=== PATIENT | female | born 1990 | race Caucasian/White ===

== ENCOUNTER 2019-01-21 20:25 | Emergency (ER) | payer OTHER, SELFPAY ==
[2019-01-21 20:35] VITALS: BP 111/72; PULSE 97; RESP 14; TEMP 37.8; O2SAT 96
--- NOTE | 2019-01-21 20:41 | DI.RAD.S_ITS ---
PROCEDURE: XR CHEST 2V INDICATIONS: chest burning and tightness. TECHNIQUE: 2 views of the chest were acquired. COMPARISON: None. FINDINGS: Surgical changes and devices: None. Lungs and pleura: Lungs are clear. No pleural effusions or pneumothorax. Mediastinum: Mediastinal contours are normal. Heart size is normal. Bones and chest wall: No suspicious bony abnormalities. Soft tissues appear unremarkable. IMPRESSION: Normal chest. Dictated by: Ching Sauceda M.D. on 01/21/2019 at 21:00 Approved by: Ching Sauceda M.D. on 01/21/2019 at 21:00
[2019-01-21 21:05] LABS: Influenza A and B by PCR Rapid Negative (Negative)
--- NOTE | 2019-01-21 22:18 | ED.URI ---
HPI - URI/Sore Throat General Chief Complaint: Upper Respiratory Symptoms Stated Complaint: TIGHTNESS OF CHEST BURING SENSATION SORE THROAT Time Seen by Provider: 01/21/19 22:17 Source: patient Mode of arrival: ambulatory Limitations: no limitations History of Present Illness HPI Narrative: Patient is a 28-year-old female sent over from the walk-in clinic for evaluation after she went to the walk-in clinic for evaluation of a couple days of chest congestion and coughing and chest pain and shortness of breath. Related Data Home Medications Medication Instructions Recorded Confirmed bupropion HCl SR 150 mg tablet,12 150 mg PO BID 01/21/19 01/21/19 hr sustained-release diphenhydramine 25 mg capsule 25 mg PO BEDTIME PRN 01/21/19 01/21/19 melatonin 3 mg tablet 3 mg PO BEDTIME PRN 01/21/19 01/21/19 Allergies Allergy/AdvReac Type Severity Reaction Status Date / Time aspirin Allergy Verified 01/21/19 19:41 Review of Systems Constitutional Denies fever(s) Cardiovascular Reports chest pain, Denies rapid heart rate, Denies palpitations and Reports dyspnea Respiratory Reports pain on inspiration and Reports dyspnea Gastrointestinal Gastrointestinal: Denies change in stool character, Denies nausea and Denies vomiting Musculoskeletal Denies myalgias Integumentary/Breasts Denies rash Endocrine Denies palpitations Hematologic/Lymphatic Denies easy bleeding and Denies easy bruising PFSH Medical History Healthy adult (Acute) Social History Smoking Status: Never smoker Social History Smoking Status: Never smoker Exam Initial Vital Signs Initial Vital Signs: Vital Signs Temperature 100.1 F H 01/21/19 20:35 Pulse Rate 97 H 01/21/19 20:35 Respiratory Rate 14 01/21/19 20:35 Blood Pressure 111/72 01/21/19 20:35 Pulse Oximetry 96 01/21/19 20:35 Const General: cooperative, healthy appearing, comfortable, well developed, well groomed and No acute distress Orientation: alert and awake Resp Effort & Inspection: normal respiratory effort Auscultation: clear to auscultation bilaterally Cardio Rate: regular rate Rhythm: regular rhythm GI Inspection: non-distended Palpation: soft Skin Lesions: no lesions Rashes: no rashes Neuro General: alert, awake and oriented x3 Extrem General: normal to inspection and capillary refill normal Course Orders Ordered: ED Orders 01/21/19 20:41 XR chest 2V Stat EKG-12 Lead Stat 01/21/19 20:42 Influenza A and B by PCR Rapid Stat Vital Signs - 8 hr 01/21/19 20:35 01/21/19 22:54 Temperature 100.1 F H Pulse Rate 97 H 89 Respiratory Rate 14 20 Blood Pressure 111/72 106/74 Pulse Oximetry 96 100 MDM - URI/Sore Throat Lab Data Attestation: I reviewed the patient's lab results. Lab Results 01/21/19 Range/Units 20:42 Influenza A & B (PCR) Negative (Negative) Imaging Data Chest x-ray: Radiologist's impression: [address] [address] XRay Report Signed Patient: Massiel La MMR#: [id number] : 1990Acct:[id number] Age/Sex: 28 / FDate of Service: 01/21/19 Loc: ED Accession Number: [id number] Procedure: XR chest 2V Ordering Provider: Juan M Fernandez D.O. PROCEDURE: XR CHEST 2V INDICATIONS: chest burning and tightness. TECHNIQUE: 2 views of the chest were acquired. COMPARISON: None. FINDINGS: Surgical changes and devices: None. Lungs and pleura: Lungs are clear. No pleural effusions or pneumothorax. Mediastinum: Mediastinal contours are normal. Heart size is normal. Bones and chest wall: No suspicious bony abnormalities. Soft tissues appear unremarkable. IMPRESSION: Normal chest. Dictated by: Ching Sauceda M.D. on 01/21/2019 at 21:00 Approved by: Ching Sauceda M.D. on 01/21/2019 at 21:00 ECG Data Attestation: I personally reviewed and interpreted this ECG as follows: Prior ECG tracings: not available for review Interpretation: Sinus rhythm Ventricular rate 87 Normal axis Normal intervals Normal QRS Normal QTC No ST T wave changes MDM Narrative Medical decision making narrative: Low suspicion for ACS, flu was negative. Chest x-ray is unremarkable. No suspicion for PE. Suspect viral URI. Discussed all this with the patient. We discussed return precautions. She expressed understanding and agreement with plan. Discharge Plan Departure Patient Disposition: Home Clinical Impression: Upper respiratory infection Qualifiers: URI type: unspecified URI Qualified Code(s): J06.9 - Acute upper respiratory infection, unspecified Discharge Date/Time: 01/21/19 22:55 Interventions: ED Discharge Assessment Last Done: 01/21/19 22:54 Instructions: DI for Viral Upper Respiratory Infection -- Adult Activity Restrictions/Additional Instructions: Contact your primary care doctor for a follow-up. Continue with the decongestants like we discussed. Return to the emergency department for any new or worsening symptoms Prescriptions: No Action bupropion HCl [Wellbutrin SR] 150 mg tablet sustained-release 12 hr 150 mg PO BID RF: 0 melatonin 3 mg tablet 3 mg PO BEDTIME PRNRF: 0 diphenhydramine HCl [ZzzQuil] 25 mg capsule 25 mg PO BEDTIME PRNRF: 0
[2019-01-21 22:54] VITALS: BP 106/74; PULSE 89; RESP 20; O2SAT 100
== END 2019-01-21 22:55 | disposition home or self-care (01) ==
PROVIDERS: Emergency Provider Emergency Medicine
DX: J06.9 Acute upper respiratory infection, unspecified (principal)
CPT/HCPCS: 71046; 87400; 93005; 99282; 99284

== ENCOUNTER → 2021-08-12 10:12 | Outpatient (CLI) | payer OTHER, SELFPAY | PROVIDERS: Referring Provider Internal Medicine; Visit Provider Internal Medicine | DX: Z23 Encounter for immunization (principal) | CPT/HCPCS: 90471; 90686 ==

== ENCOUNTER → 2021-09-10 15:36 | Outpatient (CLI) | payer OTHER, SELFPAY ==
[2021-09-10] MEDS: COVID-19 VACC #3, MRNA(MOD) 50 MCG/0.25 ML VIAL IM (15:44)
== END ==
PROVIDERS: Visit Provider Internal Medicine
DX: Z23 Encounter for immunization (principal)
CPT/HCPCS: 0013A; 91301

== ENCOUNTER → 2021-11-10 11:14 | Outpatient (CLI) | payer OTHER, SELFPAY ==
[2021-11-10 14:26] LABS: COVID19 -Nasal RAPID Negative (Negative)
== END ==
PROVIDERS: Referring Provider Nurse Practitioner Family; Visit Provider Nurse Practitioner Family
DX: Z20.822 Contact with and (suspected) exposure to COVID-19 (principal); R05.9 Cough, unspecified
CPT/HCPCS: 87635

== ENCOUNTER → 2022-03-10 07:26 | Outpatient (CLI) | payer OTHER, SELFPAY ==
[2022-03-10 08:46] LABS: Add Manual Diff / Slide Review NO; Basophils Absolute Auto 0 /uL (0-100); Basophils Percent Auto 0.9 % (0-2); Eosinophils Absolute Auto 100 /uL (0-450); Eosinophils Percent Auto 1.5 % (2-4); Hematocrit 38.1 % (36-46); Hemoglobin 13.1 g/dL (12.0-16.0); Lymphocytes Absolute Auto 1700 /uL (1100-4500); Mean Corpuscular HGB Conc 34.4 % (30-36); Mean Corpuscular Hemoglobin 31.8 PG (26-34); Mean Corpuscular Volume 92.3 fL (80-100); Monocytes Absolute Auto 500 /uL (0-900); Monocytes Percent Auto 12.8 % (3-14); Neutrophils Absolute Auto 1800 /uL (1500-7000); Neutrophils Percent Auto 43.8 % (50-75); Platelet Count 163 X10^3/uL (150-400); Red Blood Cell Count 4.13 X10^6/uL (4.0-5.2); Red Cell Distribution Width 12.9 % (11.6-14.8); White Blood Cell Count 4.1 X10^3/uL (4.5-11.0)
[2022-03-10 09:03] LABS: Alanine Aminotransferase 10 IU/L (<35); Albumin 4.3 g/dL (3.5-5.0); Albumin Globulin Ratio 1.7 (1.0-2.8); Alkaline Phosphatase 108 U/L (38-126); Aspartate Aminotransferase 19 IU/L (14-36); BUN Creatinine Ratio 10.1 (6-22); Bilirubin Total 0.9 mg/dL (0.2-1.3); Blood Urea Nitrogen 8 mg/dL (7-17); Calcium 8.7 mg/dL (8.4-10.2); Carbon Dioxide 25 mmol/L (22-32); Chloride 106 mmol/L (98-107); Cholesterol 179 mg/dL (140-199); Estimated Glomerular Filt Rate > 60 mL/min (>60); Globulin 2.6 g/dL (1.7-4.1); Glucose 84 mg/dL (70-100); HDL Cholesterol 77 mg/dL (40-60); HEMOLYSIS < 15 (0-50); LDL Cholesterol Calculated 88 mg/dL (<100); Sodium 139 mmol/L (137-145); Total Protein 6.9 g/dL (6.3-8.2); Triglycerides 70 mg/dL (35-150)
[2022-03-10 09:05] LABS: Hemoglobin A1C% w Est Avg Glu 4.6 % (4.0-6.0)
[2022-03-10 09:32] LABS: TSH w/ Reflex to FT4 5.05 uIU/mL (0.47-4.68)
[2022-03-10 09:57] LABS: Free T4, Direct Thyroxine 1.02 ng/dL (0.78-2.19)
== END ==
PROVIDERS: PCP Nurse Practitioner; Referring Provider Internal Medicine Cardiovascular Disease; Visit Provider Internal Medicine Cardiovascular Disease
DX: R00.2 Palpitations (principal); Z13.220 Encounter for screening for lipoid disorders; Z13.1 Encounter for screening for diabetes mellitus
CPT/HCPCS: 36415; 80053; 80061; 83036; 84439; 84443; 85025

== ENCOUNTER → 2022-05-17 16:15 | Outpatient (CLI) | payer OTHER, SELFPAY ==
--- NOTE | 2022-05-17 16:17 | DI.MRI.S_ITS ---
PROCEDURE: MR CERVICAL SPINE WO CON INDICATIONS: RADICULOPATHY CERVICAL REGION TECHNIQUE: Noncontrast sagittal T1 spin echo and T2 fast spin echo, sagittal STIR, foraminal oblique sagittal T2 fast spin echo, and axial gradient echo or T2 fast spin echo through the cervical spine. COMPARISON: None. FINDINGS: Image quality: Excellent. Alignment and Curvature: There is normal bony alignment. Bone Marrow: Marrow demonstrates normal overall signal. Spinal Cord: Visualized spinal cord has normal size and signal. No cerebellar tonsillar herniation. Paraspinous Soft Tissues: No paravertebral masses. Prevertebral soft tissues are normal in thickness. Mucosal thickening noted in the visualized maxillary sinuses bilaterally, right greater than left. C2-C3: Normal appearance. C3-C4: Normal appearance. C4-C5: Normal appearance. C5-C6: Normal appearance. C6-C7: Normal appearance. C7-T1: Normal appearance. IMPRESSION: 1. Normal examination. 2. No central stenosis. 3. No neural foraminal narrowing. 4. No neural compression. Dictated by: Alka Torres MD, PhD on 05/18/2022 at 10:17 Approved by: Alka Torres MD, PhD on 05/18/2022 at 10:19
== END ==
PROVIDERS: PCP Nurse Practitioner; Referring Provider Physical Medicine & Rehabilitation Pain Medicine; Visit Provider Physical Medicine & Rehabilitation Pain Medicine
DX: M54.12 Radiculopathy, cervical region (principal)
CPT/HCPCS: 72141

== ENCOUNTER → 2022-06-14 12:47 | Outpatient (CLI) | payer OTHER, SELFPAY ==
--- NOTE | 2022-06-14 14:08 | DI.ECHO.S_ITS ---
+ + Interpretation Summary The ejection fraction is estimated to be 55-60%. Diastolic parameters suggest probable normal left ventricular diastolic function and normal filling pressures. The right ventricle is normal in size and function. No significant valvular abnormalities. Unable to estimate PASP. Procedure: A two-dimensional transthoracic echocardiogram with color flow and Doppler was performed. The study quality was technically difficult. There is no prior echocardiogram noted for this patient. The patient was in normal sinus rhythm during the exam. Left Ventricle: The left ventricle is normal in size and wall thickness. Left ventricular systolic function is normal. The ejection fraction is estimated to be 55-60%. There are no focal wall motion abnormalities. Diastolic parameters suggest probable normal left ventricular diastolic function and normal filling pressures. Right Ventricle: The right ventricle is normal in size and function. Atria: Both atria are normal in size. The interatrial septum grossly appears intact with no obvious evidence for an atrial septal defect. Mitral Valve: The mitral valve is normal in structure and function. There is no mitral regurgitation noted. Aortic Valve: The aortic valve opens well. There is no aortic valve stenosis. No aortic regurgitation is present. Tricuspid Valve: The tricuspid valve is normal in structure and function. No tricuspid regurgitation. Pulmonary artery pressures cannot be estimated because of the lack of a measurable TR jet velocity. Pulmonic Valve: The pulmonic valve is not well visualized. Great Vessels: The aortic root is not well visualized. The ascending aorta could not be visualized. The IVC is of normal diameter and collapses greater than 50% with a sniff. This suggests a low right atrial pressure of 3 mm Hg. Pericardium/ Pleura There is no pericardial effusion. There is no pleural effusion. MMode/2D Measurements & Calculations LVIDd: 4.0 cm LA dimension: 2.9 cm LVIDs: 2.6 cm LA A4 area: 7.1 cm2 FS: 33.4 % LA length (vol): 3.4 cm IVSd: 0.68 cm LVPWd: 0.72 cm LV goodman. diameter/BSA (cm/m^2): 2.4 LV sys. diameter/BSA (cm/m^2): 1.6 RA long axis: 3.3 cm TAPSE: 1.9 cm RA area: 7.2 cm2 RA vol: 13.2 ml RA : 8.1 ml/m2 Doppler Measurements & Calculations Ao V2 max: 110.7 cm/sec LVOT Max Jack: 83.9 cm/sec Ao V2 mean: 76.0 cm/sec LV V1 max P.8 mmHg Ao max P.9 mmHg LV V1 VTI: 16.1 cm Ao mean P.6 mmHg sev ratio: 0.78 Ao V2 VTI: 20.7 cm MV E max jack: 79.9 cm/sec MV A max jack: 48.9 cm/sec MV E/A: 1.6 Med Peak E' Jack: 12.0 cm/sec E/E' med: 6.6 Lat Peak E' Jack: 15.8 cm/sec E/E' lat: 5.0 E/e' average: 5.8 MV dec time: 0.16 sec Reading Physician:04:[id number] PM
[2022-06-14 15:30] LABS: COVID19 -Nasal RAPID Negative (Negative)
--- NOTE | 2022-06-15 18:52 | DI.NM.S_ITS ---
DATE OF SERVICE: 06/14/2022 PROCEDURE: Exercise stress test. INDICATION: Dizziness, presyncope, palpitation. CARDIAC STRESS: Patient underwent exercise stress test under the supervision of an attending staff. She walked on Evan protocol for 6 minutes and achieved maximum heart rate of 169 beats per minute. It was 90 percent of target heart rate. Baseline blood pressure 102/80 mmHg. Peak blood pressure 133/90 mmHg. The patient achieved 7 METs of workload. Functional aerobic impairment positive 36 percent. Baseline rhythm was sinus. During stress, no convincing ischemic changes seen. No significant arrhythmias seen. No chest pain. The patient had lightheadedness and moderate shortness of breath. The patient achieved a heart rate of 150 within 2 minutes and 50 minutes into the exercise, suggestive of enhanced chronotropic response. At 5 minutes into the recovery, her heart rate was 109, suggestive of late recovery. CONCLUSION: Exercise stress test is negative for inducible ischemia. However, there is enhanced chronotropic response. Within 2 minutes and 50 minutes into the exercise, patient's heart rate was about 150 beats per minute. After 5 minutes in recovery. Heart rate was 109 beats per minute, suggestive of late recovery response. There is a normal blood pressure response. No chest pain however had moderate shortness of breath and lightheadedness. Diminished exercise tolerance. Correlate clinically. Massiel La - Lita doc#: [id number]/job#: [id number] dd: 06/15/2022 17:14:00 dt: 06/15/2022 18:12:00 DICTATING MD/COPIES TO: Elidia Sorto MD COPIES MNE: JORGE;
== END ==
PROVIDERS: PCP Nurse Practitioner; Referring Provider Internal Medicine Cardiovascular Disease; Visit Provider Internal Medicine Cardiovascular Disease
DX: R00.2 Palpitations (principal); R42 Dizziness and giddiness; R55 Syncope and collapse; Z20.822 Contact with and (suspected) exposure to COVID-19
CPT/HCPCS: 87635; 93017; 93306

== ENCOUNTER → 2022-08-23 15:52 | Outpatient (CLI) | payer OTHER, SELFPAY | PROVIDERS: PCP Nurse Practitioner; Referring Provider Internal Medicine; Visit Provider Internal Medicine | DX: Z23 Encounter for immunization (principal) | CPT/HCPCS: 90471; 90686 ==

== ENCOUNTER → 2022-10-11 13:24 | Outpatient (CLI) | payer OTHER, SELFPAY | PROVIDERS: PCP Nurse Practitioner; Visit Provider Physician Assistant Medical | DX: R30.0 Dysuria (principal) | CPT/HCPCS: 87086 ==

== ENCOUNTER → 2023-04-12 07:43 | Outpatient (CLI) | payer OTHER, SELFPAY ==
[2023-04-12 08:37] LABS: Add Manual Diff / Slide Review NO; Basophils Absolute Auto 0 /uL (0-100); Basophils Percent Auto 0.8 % (0-2); Eosinophils Absolute Auto 100 /uL (0-450); Eosinophils Percent Auto 3.2 % (2-4); Hematocrit 36.7 % (36-46); Hemoglobin 12.4 g/dL (12.0-16.0); Lymphocytes Absolute Auto 1400 /uL (1100-4500); Mean Corpuscular HGB Conc 33.8 % (30-36); Mean Corpuscular Hemoglobin 32.1 PG (26-34); Mean Corpuscular Volume 95.2 fL (80-100); Monocytes Absolute Auto 400 /uL (0-900); Monocytes Percent Auto 10.7 % (3-14); Neutrophils Absolute Auto 1900 /uL (1500-7000); Neutrophils Percent Auto 49.3 % (50-75); Platelet Count 170 X10^3/uL (150-400); Red Blood Cell Count 3.86 X10^6/uL (4.0-5.2); Red Cell Distribution Width 12.3 % (11.6-14.8); White Blood Cell Count 3.9 X10^3/uL (4.5-11.0)
[2023-04-12 08:42] LABS: HEMOLYSIS < 15 (0-50)
[2023-04-12 08:51] LABS: Alanine Aminotransferase 14 IU/L (<35); Albumin Globulin Ratio 1.5 (1.0-2.8); Alkaline Phosphatase 91 U/L (38-126); Aspartate Aminotransferase 18 IU/L (14-36); BUN Creatinine Ratio 11.8 (6-22); Bilirubin Total 0.8 mg/dL (0.2-1.3); Blood Urea Nitrogen 9 mg/dL (7-17); Calcium 8.8 mg/dL (8.4-10.2); Carbon Dioxide 27 mmol/L (22-32); Chloride 105 mmol/L (98-107); Cholesterol 167 mg/dL (140-199); Estimated Glomerular Filt Rate > 60 mL/min (>60); Globulin 2.6 g/dL (1.7-4.1); Glucose 87 mg/dL (70-100); HDL Cholesterol 69 mg/dL (40-60); LDL Cholesterol Calculated 86 mg/dL (<100); Potassium 4.2 mmol/L (3.4-5.1); Sodium 137 mmol/L (137-145); Total Protein 6.6 g/dL (6.3-8.2); Triglycerides 59 mg/dL (35-150)
[2023-04-12 09:17] LABS: Thyroid Stimulating Hormone 2.26 uIU/mL (0.47-4.68)
[2023-04-17 15:00] LABS: Vitamin B12 348 pg/mL (239-931)
== END ==
PROVIDERS: PCP Nurse Practitioner; Referring Provider Nurse Practitioner; Visit Provider Nurse Practitioner
DX: R55 Syncope and collapse (principal); Z13.220 Encounter for screening for lipoid disorders; D64.9 Anemia, unspecified; F32.9 Major depressive disorder, single episode, unspecified; R94.6 Abnormal results of thyroid function studies
CPT/HCPCS: 36415; 80053; 80061; 82607; 84439; 84443; 85025

== ENCOUNTER → 2023-08-08 16:08 | Outpatient (CLI) | payer OTHER, SELFPAY | PROVIDERS: PCP Nurse Practitioner; Referring Provider Family Medicine; Visit Provider Family Medicine | DX: Z23 Encounter for immunization (principal) | CPT/HCPCS: 90471; 90686 ==

== ENCOUNTER → 2023-11-01 14:00 | Outpatient (CLI) | payer OTHER, SELFPAY | PROVIDERS: PCP Nurse Practitioner; Visit Provider Nurse Practitioner Family | DX: R30.0 Dysuria (principal) | CPT/HCPCS: 87077; 87086; 87186 ==

== ENCOUNTER → 2023-11-08 10:05 | Outpatient (CLI) | payer OTHER, SELFPAY ==
[2023-11-08 10:56] LABS: Add Manual Diff / Slide Review NO; Basophils Absolute Auto 0 /uL (0-100); Basophils Percent Auto 0.7 % (0-2); Eosinophils Absolute Auto 100 /uL (0-450); Eosinophils Percent Auto 1.5 % (2-4); Hematocrit 37.2 % (36-46); Hemoglobin 12.5 g/dL (12.0-16.0); Lymphocytes Absolute Auto 1000 /uL (1100-4500); Lymphocytes Percent Auto 26.2 % (25-40); Mean Corpuscular HGB Conc 33.5 % (30-36); Mean Corpuscular Hemoglobin 31.5 PG (26-34); Mean Corpuscular Volume 94.1 fL (80-100); Monocytes Absolute Auto 400 /uL (0-900); Monocytes Percent Auto 10.3 % (3-14); Neutrophils Absolute Auto 2300 /uL (1500-7000); Neutrophils Percent Auto 61.3 % (50-75); Platelet Count 168 X10^3/uL (150-400); Red Blood Cell Count 3.96 X10^6/uL (4.0-5.2); Red Cell Distribution Width 12.6 % (11.6-14.8); White Blood Cell Count 3.8 X10^3/uL (4.5-11.0)
[2023-11-08 11:25] LABS: Alanine Aminotransferase 11 IU/L (<35); Albumin Globulin Ratio 1.4 (1.0-2.8); Alkaline Phosphatase 123 U/L (38-126); Amylase 56 U/L (30-110); BUN Creatinine Ratio 15.6 (6-22); Bilirubin Total 0.9 mg/dL (0.2-1.3); Blood Urea Nitrogen 10 mg/dL (7-17); Calcium 8.7 mg/dL (8.4-10.2); Carbon Dioxide 23 mmol/L (22-32); Chloride 108 mmol/L (98-107); Estimated Glomerular Filt Rate > 60 mL/min (>60); Globulin 2.8 g/dL (1.7-4.1); Glucose 88 mg/dL (70-100); HEMOLYSIS < 15 (0-50); Lipase 31 U/L (23-300); Potassium 3.6 mmol/L (3.4-5.1); Sodium 137 mmol/L (137-145); Total Protein 6.8 g/dL (6.3-8.2)
[2023-11-10 15:51] LABS: Aspartate Aminotransferase 19 IU/L (14-36)
== END ==
PROVIDERS: PCP Nurse Practitioner; Referring Provider Nurse Practitioner; Visit Provider Nurse Practitioner
DX: R10.11 Right upper quadrant pain (principal)
CPT/HCPCS: 36415; 80053; 82150; 83690; 85025

== ENCOUNTER → 2025-07-31 08:12 | Outpatient (CLI) | payer OTHER, SELFPAY ==
[2025-07-31 08:51] LABS: Add Manual Diff / Slide Review NO; Hematocrit 38.0 % (36-46); Hemoglobin 13.0 g/dL (12.0-16.0); Lymphocytes Absolute Auto 1400 /uL (1100-4500); Mean Corpuscular HGB Conc 34.1 % (30-36); Mean Corpuscular Hemoglobin 32.2 PG (26-34); Mean Corpuscular Volume 94.4 fL (80-100); Platelet Count 176 X10^3/uL (150-400)
[2025-07-31 09:16] LABS: Alanine Aminotransferase 14 IU/L (<35); Albumin 4.4 g/dL (3.5-5.0); Albumin Globulin Ratio 1.7 (1.0-2.8); Alkaline Phosphatase 130 U/L (38-126); Blood Urea Nitrogen 6 mg/dL (7-17); Calcium 8.8 mg/dL (8.4-10.2); Carbon Dioxide 23 mmol/L (22-32); Chloride 107 mmol/L (98-107); Cholesterol 193 mg/dL (140-199); Estimated Glomerular Filt Rate > 60 mL/min (>60); Globulin 2.6 g/dL (1.7-4.1); Glucose 82 mg/dL (70-99); HDL Cholesterol 95 mg/dL (40-60); HEMOLYSIS < 15 (0-50); Potassium 4.3 mmol/L (3.4-5.1); Sodium 139 mmol/L (137-145); Total Protein 7.0 g/dL (6.3-8.2); Triglycerides 58 mg/dL (35-150)
[2025-07-31 09:43] LABS: TSH w/ Reflex to FT4 2.73 uIU/mL (0.47-4.68)
== END ==
PROVIDERS: PCP Nurse Practitioner; Referring Provider Nurse Practitioner; Visit Provider Nurse Practitioner
DX: F32.A Depression, unspecified (principal); R11.0 Nausea; Z13.220 Encounter for screening for lipoid disorders
CPT/HCPCS: 36415; 80053; 80061; 84443; 85025